=== PATIENT | male | born 1985 | race Two or more races ===

== ENCOUNTER 2018-11-21 21:39 | Emergency (ER) | payer OTHER ==
[~2018-11-21] VITALS: Ht 167.6 cm; Wt 72.6 kg
[2018-11-21 22:51] VITALS: BP 153/99
[2018-11-21] MEDS ORDERED: LORAZEPAM 1 MG TABLET ONE (23:15)
[2018-11-21] MEDS ORDERED: LORAZEPAM 1 MG TABLET PO ONE (23:30)
== END 2018-11-21 23:43 | disposition home or self-care (01) ==
LOC: ER 21:39
DX: F10.239 Alcohol dependence with withdrawal, unspecified (principal); I10 Essential (primary) hypertension; E11.9 Type 2 diabetes mellitus without complications; Y90.9 Presence of alcohol in blood, level not specified